=== PATIENT | male | born 1945 | race Caucasian/White ===

== ENCOUNTER 2022-02-20 08:07 | Inpatient (IN) ==
--- NOTE | 2022-01-24 11:57 | PAT Medication Instructions ---
Medication Instructions Date of Service January 24, 2022 Home Medications aspirin 81 mg tablet 81 mg PO QAM atorvastatin 20 mg tablet (Lipitor) 20 mg PO PM bimatoprost 0.03 % eye drops 1 drp ophthalmic (eye) PM doxazosin 4 mg tablet 4 mg PO HS empagliflozin 10 mg tablet (Jardiance) 10 mg PO QAM famotidine 20 mg tablet 20 mg PO BID fluorouracil 0.5 % topical cream 1 applic topical HS PRN cancer spots furosemide 20 mg tablet 20 mg PO QAM latanoprost 0.005 % eye drops 1 drp ophthalmic (eye) QAM losartan 25 mg tablet 25 mg PO QAM metformin 500 mg tablet 500 mg PO QAM nitroglycerin 0.3 mg sublingual tablet (Nitrostat) 0.3 mg sublingual UD PRN Chest Pain PreserVision AREDS-2 1 tab PO AMPM Continue as directed nitroglycerin 0.3 mg sublingual tablet (Nitrostat) 0.3 mg sublingual UD PRN Chest Pain (if needed) ASK your prescriber and surgeon aspirin 81 mg tablet 81 mg PO QAM STOP taking 2 weeks before surgery (or as soon as possible if surgery is within 2 weeks) PreserVision AREDS-2 1 tab PO AMPM STOP taking 24 hours before surgery fluorouracil 0.5 % topical cream 1 applic topical HS PRN cancer spots STOP taking 3 days before surgery empagliflozin 10 mg tablet (Jardiance) 10 mg PO QAM DO NOT take the morning of surgery furosemide 20 mg tablet 20 mg PO QAM losartan 25 mg tablet 25 mg PO QAM metformin 500 mg tablet 500 mg PO QAM Take morning of surgery With a small sip of water, OTHERWISE NOTHING TO EAT OR DRINK AFTER MIDNIGHT: famotidine 20 mg tablet 20 mg PO BID latanoprost 0.005 % eye drops 1 drp ophthalmic (eye) QAM Take evening before surgery atorvastatin 20 mg tablet (Lipitor) 20 mg PO PM bimatoprost 0.03 % eye drops 1 drp ophthalmic (eye) PM doxazosin 4 mg tablet 4 mg PO HS famotidine 20 mg tablet 20 mg PO BID Other Notes If you have any questions please call us at [phone] or [phone] or [phone] or [phone]
--- NOTE | 2022-01-29 13:35 | Anesthesiology Consultation ---
Date of Service January 29, 2022 Assessment & Plan (1) Encounter for pre-operative examination: - COVID screening: Per assessment on 01/29: No known COVID-19 positive contacts or current COVID-19 related symptoms. Travel screen negative. Patient vaccinated. Patient was Covid positive 11/11/2021 (home test) - cough, runny nose, fatigue > symptoms resolved. Pt was Covid positive greater than 90 days prior to DOS. At surgeon discretion if preop Covid testing being done. - Check BSG AM DOS - Cardiology office visit (12/27/21): "Coronary artery disease: He is not having any symptoms and he is stable. His left ventricular systolic function is normal.his LDL cholesterol is at goal. I added low-dose carvedilol to his medical regiment.. Hypertension: His goal blood pressure is less than 130/80..Left bundle-branch block: His left ventricular systolic function is mildly reduced and we will continue to monitor.. Diabetes mellitus causing vascular disease: in the past I changed his glipizide to Jardiance. He inquires if there is any way to reduce the cost of Jardiance.. Preoperative evaluation: He is scheduled for lumbar spine surgery and I see no cardiac contraindication to this." Chart Review Chart Review: Acceptable Risk for Surgery and Patient seen in Pre Admission Testing Teaching & Discussion Pre-Anesthesia Teaching/Discussion Notes: Instructed NPO after midnight before surgery,except medications with 15 cc of water. Medication instructions provided according to the PAT guidelines. History Surgery Operation Date: 02/20/22 12:45 Proposed Procedures p L3-S1 Decompression and Fusion, Spinal Cord Monitoring - Kennedy Perez DO Height/Weight Height: 6 ft Weight: 110.1 kg Allergies Allergy/AdvReac Type Severity Reaction Status Date / Time apple Allergy Severe Lip/Tongue/Throat Verified 01/29/22 09:00 swelling pineapple Allergy Severe Lip/Tongue/Throat Verified 01/29/22 09:00 swelling Medications Home Medications Medication Instructions Recorded Confirmed Last Taken aspirin 81 mg tablet 81 mg PO QAM 01/24/22 01/24/22 Unknown atorvastatin 20 mg tablet (Lipitor) 20 mg PO PM 01/24/22 01/24/22 Unknown bimatoprost 0.03 % eye drops 1 drp ophthalmic (eye) PM 01/24/22 01/24/22 Unknown doxazosin 4 mg tablet 4 mg PO HS 01/24/22 01/24/22 Unknown empagliflozin 10 mg tablet 10 mg PO QAM 01/24/22 01/24/22 Unknown (Jardiance) famotidine 20 mg tablet 20 mg PO BID 01/24/22 01/24/22 Unknown fluorouracil 0.5 % topical cream 1 applic topical HS PRN cancer 01/24/22 01/24/22 Unknown spots furosemide 20 mg tablet 20 mg PO QAM 01/24/22 01/24/22 Unknown latanoprost 0.005 % eye drops 1 drp ophthalmic (eye) QAM 01/24/22 01/24/22 Unknown losartan 25 mg tablet 25 mg PO QAM 01/24/22 01/24/22 Unknown metformin 500 mg tablet 500 mg PO QAM 01/24/22 01/24/22 Unknown nitroglycerin 0.3 mg sublingual 0.3 mg sublingual UD PRN Chest Pain 01/24/22 01/24/22 Unknown tablet (Nitrostat) vit C 250 mg-E 90 mg-zinc 40 1 tab PO AMPM 01/24/22 01/24/22 Unknown mg-copper 1 [id number] chew tablet (PreserVision AREDS-2) Past Medical History Medical History CAD (coronary artery disease) RICH to pLAD (2017) Diabetes GERD (gastroesophageal reflux disease) Controlled Glaucoma History of COVID-19 11/11/2021 (home test) - cough, runny nose, fatigue > symptoms resolved History of left bundle branch block (LBBB) Hx of skin cancer, basal cell Hyperlipidemia Hypertension Obesity Sleep apnea CPAP (compliant) Exercise / Class Metabolic Activity III < 4 Walking/Shop/Light housework (one FS (no CP, + SOB)) Past Family History Family History Other No family history of adverse response to anesthesia Past Surgical History Surgical History Hx of cardiac catheterization RICH to Tyra (2017) Hx of total knee replacement R/L Past Anesthesia History No Hx of Anesthesia Complications and No Family Hx of Anesthesia Complications History of PONV No Hx of PONV and No Hx of Motion Sickness Social History Smoking Status: Never smoker Do You Dip or Chew Tobacco: No Hx Alcohol Use: Yes Alcohol type: beer alcohol intake frequency: holidays/special occasions only Hx Substance Use: No substance use type: does not use Review of Systems Patient denies chest pain, shortness of breath, reflux, cough, wheezing, palpitations. Physical Exam Vital Signs VITALS BP 127/72 P 70 TEMP 97.5 SP02 96%RA RESP 18 PHYSICAL Full cervical extension range of motion. Full TMJ range of motion. TMD 3 finger breaths Mallampati Score 2 Dentition: upper full denture, lower partial Lungs: clear throughout to auscultation Cardiac: regular rate and rhythm, no murmurs noted Spine: normal Carotid arteries: negative bruit Extremities: no edema Lab Results Anesthesia Preop Results Results Anesthesia Widget: WBC 5.12 K/ul (4.8-10.8) 01/29/22 Hgb 14.5 g/dl (14.0-18.0) 01/29/22 Hct 42.6 % (40.1-51.0) 01/29/22 Plt 176 K/uL (130-400) 01/29/22 Na 140 mmol/L (136-145) 01/29/22 K 4.0 mmol/L (3.5-5.1) 01/29/22 Cl 105 mmol/L (98-107) 01/29/22 CO2 29 mmol/L (21-32) 01/29/22 BUN 17 mg/dl (6-23) 01/29/22 Creat 1.01 mg/dl (0.6-1.4) 01/29/22 Glucose Level 150 mg/dl (70-99(Fasting)) H 01/29/22 PT 10.7 Seconds (9.0-12.0) 01/29/22 PTT 23.2 Seconds (21.0-31.0) 01/29/22 INR 1.0 (0.9-1.1) 01/29/22 Urine Color Yellow 01/29/22 Urine Appearance Clear (Clear) 01/29/22 Urine pH 5.0 (4.5-7.5) 01/29/22 Urine Specific Dexter 1.021 (1.000-1.030) 01/29/22 Urine Protein Negative (Negative) 01/29/22 Urine Glucose (UA) 3+ (Negative) H 01/29/22 Urine Ketones Negative (Negative) 01/29/22 Urine Blood Negative (Negative) 01/29/22 Urine Nitrite Negative (Negative) 01/29/22 Urine Bilirubin Negative (Negative) 01/29/22 Urine Urobilinogen Negative (Negative) 01/29/22 Urine Leukocyte Esterase Negative (Negative) 01/29/22 Blood Type A Positive 01/29/22 Antibody Screen NEGATIVE 01/29/22 Testing Laboratory Results 01/02/22 HGBA1C 6.9% Electrocardiogram Date: 01/29/22 SB with first degree AVB at 59bpm. LAD. NS IVCD. Compared to 10/12/2004, UT interval increased, QRS duration increased, criteria for septal infarct no longer present per bulk truck driver comparison. Chest X-Ray Date: 01/29/22 FINDINGS: PA and lateral chest radiographs are obtained. No prior studies are av ailable for comparison at the time of dictation. The heart is mildly enlarged noting atherosclerotic calcification of the thoracic aorta. The pulmonary vasculature is noncongestive. Interstitial thickening is likely chronic. There is bibasilar scarring/atelectasis. The lungs and pleural spaces are clear. There is no pneumothorax. The skeletal structures are osteopenic. The bony thorax appears intact. IMPRESSION: No active disease in the chest. Echocardiogram Date: 01/16/21 LVEF 45-50%. Septal motion abnormal consistent with left bundle branch block. Left ventricular wall motion is normal. Grade 1 diastolic dysfunction. No significant valvular disease. Stress Test Date: 06/09/17 Type: nuclear Abnormal pharmacologic Cardiolite stress test demonstrating LAD territory ischemia. Indeterminate stress EKG secondary to baseline left bundle branch block. Anterior septal hypokinesis. Mildly reduced post-rest ejection fraction of 48%. Top normal TID. Subsequent cardiac cath with placement of 1 drug-eluting stent performed 06/20/2017.* Cardiac Catheterization Date: 06/20/17 Coronary arteries have significant one-vessel [id number]% stenosis in proximal/mid LAD status post successful PCI with 1 drug-eluting stent. COVID-19 Risk Screen Screening Information COVID-19 Screen Date: 01/29/22 Exposure 21 Days Family/Household +COVID Last 21 Days: No Exposure 10 Days Any COVID Exposure Last 10 Days: No Symptoms Last 10 Days Experienced COVID Sx Last 10 Days: No + COVID 0-90 Days COVID + in Last 0-90 Days: Yes + COVID Test 0-10 Day: No + COVID Test 11-90 Day: Yes
[~2022-02-20 08:07] MED LIST: ACETAMINOPHEN 500 MG TAB PO SCH; CeleBREX 200 MG CAP PO SCH; GABAPENTIN 300 MG CAP PO SCH; LR 15ML/HR IV SCH; ceFAZolin 2000MG 2,000 MG/15 ML SYR IV SCH
[2022-02-20] MEDS ORDERED: ATROPINE SULFATE 0.1 MG/ML 10ML SYR IV PRN (08:31)
[2022-02-20] MEDS ORDERED: ePHEDrine sulfate 50 MG/ML AMP IV PRN (08:31)
[2022-02-20] MEDS ORDERED: ONDANSETRON INJ 2 MG/ML 2 ML VIAL IV PRN ×2 (08:31→14:59)
--- NOTE | 2022-02-20 09:20 | History & Physical Bridge Note ---
Date of Service February 20, 2022 History & Physical Bridge Note I have examined the patient, reviewed the History & Physical and in the interval since the performance of the History & Physical I have noted the following changes of clinical significance: no changes noted
--- NOTE | 2022-02-20 09:21 | History & Physical Report ---
Date of Service February 20, 2022 Assessment & Plan (1) Neurogenic claudication due to lumbar spinal stenosis: Plan: L3-S1 decompression and fusion History of Present Illness Chief Complaint: Back and bilateral leg pain Primary Care Provider: Hunter Ruiz MD This is a 76-year-old male presents with chronic system back and leg pain after failing course of nonoperative care is here for surgical invention. Allergies Allergy/AdvReac Type Severity Reaction Status Date / Time apple Allergy Severe Lip/Tongue/Throat Verified 02/20/22 08:33 swelling pineapple Allergy Severe Lip/Tongue/Throat Verified 02/20/22 08:33 swelling Home Medications Medication Instructions Recorded Confirmed Type aspirin 81 mg tablet 81 mg PO QAM 01/24/22 02/20/22 History atorvastatin 20 mg tablet (Lipitor) 20 mg PO PM 01/24/22 02/20/22 History bimatoprost 0.03 % eye drops 1 drp ophthalmic (eye) PM 01/24/22 02/20/22 History doxazosin 4 mg tablet 4 mg PO HS 01/24/22 02/20/22 History empagliflozin 10 mg tablet 10 mg PO QAM 01/24/22 02/20/22 History (Jardiance) famotidine 20 mg tablet 20 mg PO BID 01/24/22 02/20/22 History fluorouracil 0.5 % topical cream 1 applic topical HS PRN cancer 01/24/22 02/20/22 History spots furosemide 20 mg tablet 20 mg PO QAM 01/24/22 02/20/22 History latanoprost 0.005 % eye drops 1 drp ophthalmic (eye) QAM 01/24/22 02/20/22 History losartan 25 mg tablet 25 mg PO QAM 01/24/22 02/20/22 History metformin 500 mg tablet 500 mg PO QAM 01/24/22 02/20/22 History nitroglycerin 0.3 mg sublingual 0.3 mg sublingual UD PRN Chest Pain 01/24/22 02/20/22 History tablet (Nitrostat) vit C 250 mg-E 90 mg-zinc 40 1 tab PO AMPM 01/24/22 02/20/22 History mg-copper 1 [id number] chew tablet (PreserVision AREDS-2) Past Med/Surg History Medical History CAD (coronary artery disease) RICH to pLAColby (2018) Diabetes GERD (gastroesophageal reflux disease) Controlled Glaucoma History of COVID-19 11/11/2021 (home test) - cough, runny nose, fatigue > symptoms resolved History of left bundle branch block (LBBB) Hx of skin cancer, basal cell Hyperlipidemia Hypertension Obesity Sleep apnea CPAP (compliant) Surgical History Hx of cardiac catheterization RICH to Tyra (2017) Hx of total knee replacement R/L Family History Other No family history of adverse response to anesthesia Social History Smoking Status: Never smoker Second Hand Exposure: No; Do You Dip or Chew Tobacco: No; Tobacco Cessation Education Requested by Patient: No Hx Alcohol Use: Yes Alcohol type: beer Hx Substance Use: No Preferred Language: Lao Communication Ability: Effective Damper Fitter Required: No Beliefs That Will Affect Care: None Current Living Situation: Spouse Other Information That Helps Us Care for You: No Feels Safe at Home: Yes Safety Concerns: Feels Safe At This Time Assistive Devices: CPAP, Denture - Upper, Denture - Lower, Glasses and Hearing Aid - Bilateral Physical Exam Physical Exam: Patient is alert oriented Heart regular rhythm Lungs clear Results & Data Results & Data ([facility]) Vital Signs (Past 12 Hours) Vital Signs Temp Pulse Resp BP Pulse Ox O2 Del Method 02/20/22 08:30 36.6 C 90 20 150/87 H 96 Room Air
[2022-02-20] MEDS ORDERED: ceFAZolin 330 MG/ML 1 GM VIAL ONE (09:30)
[2022-02-20] MEDS ORDERED: BUPIVACAINE/EPINEPHRINE 0.25% 1:200,000 30 ML VIAL ONE (09:30)
[2022-02-20] MEDS ORDERED: MIDAZOLAM HCL 1 MG/ML 2ML VIAL ONE (09:37)
[2022-02-20] MEDS ORDERED: PROPOFOL IV EMULSION 10 MG/ML 20 ML VIAL IV ONE (09:37)
[2022-02-20] MEDS ORDERED: fentaNYL citrate 100 MCG/2 ML VIAL ONE (09:37)
[2022-02-20] MEDS ORDERED: LIDOCAINE 2% MPF LOCAL 5 ML VIAL INFIL ONE (09:38)
[2022-02-20] MEDS ORDERED: ROCURONIUM BROMIDE 10 MG/ML 5 ML VIAL IV ONE ×7 (09:39→11:19)
[2022-02-20] MEDS ORDERED: SUCCINYLCHOLINE CHLORIDE 20 MG/ML 10 ML VIAL IV ONE (09:40)
[2022-02-20] MEDS ORDERED: HYDROmorphone INJ 2 MG/ML SYR/VIAL ONE (11:17)
[2022-02-20] MEDS ORDERED: FLOSEAL HEMOSTATIC MATRIX 10ML TOP ONE ×2 (11:40→11:56)
--- NOTE | 2022-02-20 12:26 | Operative Report ---
Post Operative Report Pre & Post Diagnosis Operation Date: 02/20/22 09:45 Pre-Op Diagnosis: Neurogenic Claudication due to Lumbar Spinal Stenosis Post-Op Diagnosis: Neurogenic Claudication due to Lumbar Spinal Stenosis I identified the patient and participated in the time-out.: Yes Procedure Operation Date: 02/20/22 09:45 Actual Procedures #1 lumbar decompression bilateral medial facetectomies and foraminotomies L2-L3, L3-L4, L4-L5 and L5-S1. #2 posterior spinal fusion L3-S1. #3 placement posterior segmental instrumentation L3-S1. #4 interbody fusion L3-L4, L4-L5 and L5-S1. #5 placement of Spira limb by 26 mm at L3-L4, 14 x 26 mm at L4-5 and 10 x 26 mm L5-S1. #6 placement locally harvested morselized autograft in the posterior gutters. #7 placement of I factor model V toss in interbody space and posterior lateral gutters. Surgeon Kennedy Perez, DO Preform Plate Maker Rosario Addison Estimated Blood Loss 500 Findings See Below The patient is 6 feet tall weighing over 108 kg with a BMI in excess of 32. The patient's body habitus did contribute significant technical difficulty requiring her deepest retractors and longer instruments in order to perform his procedure. This at least 50% increased operative time. Specimens None Indications This is a 76-year-old male who presents above-mentioned diagnosis after failed extensive course of nonoperative care is here for surgical invention. Description of Procedure Patient met with identified informed consent obtained. Patient was then taken to the operative suite underwent ablation placed in a prone position the [place] table top Jamari frame. All bony prominences well-padded eyes inspected to e nsure no external pressure placed upon them. This point the lumbar spine was prepped and draped in normal sterile fashion. Sharp dissection with the assistance of Bovie cartilage from down to and exposing the lamina and transverse processes of L3 L4-5 and sacral ala bilaterally. From a caudal to cephalad fashion complete laminectomy of L5 L4 L3 and partial laminectomy of L2 was performed including bilateral medial facetectomies and foraminotomies addressing severe spinal stenosis. Pedicle screws were then placed in L3-L4-L5 and S1 levels bilaterally with assistance of fluoroscopy and appropriately sized nba placed. By way of entrance foraminal approach and left complete discectomy of L5-S1 was performed endplates curetted to subcortical bleeding bone and a 10 x 26 mm spiral cage with I factor tapped in position. I then proceeded L4-L5 and again by way of a transfemoral approach and left complete discectomy performed endplates curetted to subcortical bleeding bone and a 14 x 26 mm spiral cage filled I factor tapped in position. Lastly proceeded to L3-L4 and again by way of a transfemoral approach and left pleat discectomy performed endplates curetted to subcortical bleeding bone and a 11 x 26 mm spiral cage with I factor tapped in position. Rods were then locked in final position bilaterally. The transverse processes of L3 L4-5 and sacral ala burred to subcortical bleeding bone. I factor model V toss and locally harvested morselized autograft placed in the posterior gutters. 15 round JOSE ALEJANDRO drain inserted. The incision was then closed with 1 Vicryl in the fascia 2-0 Vicryl subcutaneously and 4 Monocryl for final skin closure. Steri-Strips dressings placed. Patient awakened taken to PACU stable condition. Please note spinal cord monitoring was utilized at the procedure no changes noted. Lastly Rosario Addison was present at the entire surgery involved the patient positioning complex portions of the surgery and final skin closure. I attest to the content of the Intraoperative Record and any orders documented therein. Any exceptions are noted below.
[2022-02-20] MEDS ORDERED: ONDANSETRON INJ 2 MG/ML 2 ML VIAL ONE (12:27)
[2022-02-20] MEDS ORDERED: GLYCOPYRROLATE 0.2 MG/ML VIAL ONE (12:31)
--- NOTE | 2022-02-20 12:36 | Fluoroscopy Report ---
INTRAOPERATIVE RADIOGRAPHS CLINICAL HISTORY: L3-S1 spinal fusion. Fluoroscopy time: 46 seconds. FINDINGS: 3 spot fluoroscopic views of the lumbar spine are presented. There has been discectomy at L 3-L4, L4-L5, and L5-S1 with L3-S1 spinal fusion. Interpedicular screws are present at all levels. The orthopedic hardware appears intact. IMPRESSION: Intraoperative images from lumbar spinal fusion surgery as above. Electronically signed by: Mike Ruiz M.D. 02/20/2022 12:35 PM
[2022-02-20] MEDS: fentaNYL citrate 100 MCG/2 ML VIAL IV PRN ×4 (12:52→13:35)
--- NOTE | 2022-02-20 13:49 | Anesthesiology Progress Note ---
Date of Service February 20, 2022 Anesthesia Post Procedure Vital Signs Vital Signs: Temp Pulse Resp BP Pulse Ox O2 Del Method O2 Flow Rate 02/20/22 13:40 68 12 137/89 95 Nasal Cannula 2 02/20/22 13:30 71 16 140/72 96 Nasal Cannula 2 02/20/22 13:20 70 19 144/73 H 97 Nasal Cannula 2 02/20/22 13:10 68 15 128/75 94 Oxymask 4 02/20/22 13:00 69 15 130/66 96 Oxymask 4 02/20/22 12:50 68 14 137/72 97 Oxymask 4 02/20/22 12:43 36.5 C 74 20 139/85 96 Oxymask 6 02/20/22 08:30 36.6 C 90 20 150/87 H 96 Room Air Pain Intensity Right Leg: Pain Intensity: 0 Back: Pain Intensity: 5 Transfer of Care Handoff Completed per policy Notes Mental Status: alert / awake / arousable Patient Amnestic to Procedure: Yes Nausea / Vomiting: adequately controlled Pain: adequately controlled Airway Patency, RR, SpO2: stable & adequate BP & HR: stable & adequate Hydration State: stable & adequate Anesthetic Complications: no major complications apparent
[2022-02-20] MEDS ORDERED: ONDANSETRON 4 MG OD TAB PO PRN (14:59)
[2022-02-20] MEDS ORDERED: SOD PHOSPHATE/SOD BIPHOSPHATE ENEMA 132 ML BTL PR PRN (14:59)
[2022-02-20] MEDS ORDERED: NALOXONE HCL 0.4 MG/1 ML VIAL/CARP IV PRN (14:59)
[2022-02-20] MEDS ORDERED: HYDROmorphone INJ 1 MG/ML SYRINGE IV PRN (14:59)
[2022-02-20] MEDS ORDERED: PROMETHAZINE HCL 12.5 MG in SODIUM CHLORIDE 0.9% 50 ML IV PRN (14:59)
[2022-02-20] MEDS ORDERED: LORazepam 0.5 MG in SYRINGE 0 ML IV PRN (14:59)
[2022-02-20] MEDS ORDERED: FAMOTIDINE 20 MG TAB PO PRN (14:59)
[2022-02-20] MEDS ORDERED: diphenhydrAMINE Capsule 25 MG CAP PO PRN (14:59)
[2022-02-20] MEDS ORDERED: PHARMACY GLYCEMIC MGMT CONSULT PRN (14:59)
[2022-02-20] MEDS ORDERED: ACETAMINOPHEN 1,000 MG/100 ML VIAL IV PRN (14:59)
[2022-02-20] MEDS ORDERED: METOCLOPRAMIDE HCL INJ 5 MG/ML 2 ML VIAL IV PRN (14:59)
[2022-02-20] MEDS ORDERED: hydrOXYzine HCl 25 MG TAB PO PRN (14:59)
[2022-02-20] MEDS ORDERED: DO NOT ADMINISTER PNEUMOCOCCAL VACCINE PRN (14:59)
[2022-02-20] MEDS ORDERED: traMADol HCL 50 MG TABLET PO PRN (14:59)
[2022-02-20] MEDS ORDERED: DO NOT ADMINISTER FLU VACCINE PRN (14:59)
[2022-02-20] MEDS ORDERED: MAGNESIUM HYDROXIDE SUSP 30 ML UDC PO PRN (14:59)
[2022-02-20] MEDS ORDERED: LORazepam 0.5 MG TAB PO PRN (14:59)
[2022-02-20] MEDS ORDERED: bisacodyL 10 MG SUPP PR PRN (14:59)
[2022-02-20] MEDS ORDERED: ALUMINUM/MAGNESIUM SUSP 30 ML UDC PO PRN (14:59)
[2022-02-20] MEDS ORDERED: NITROGLYCERIN SL 0.4 MG/TAB TAB SL PRN (15:08)
[2022-02-20] MEDS: SODIUM CHLORIDE 0.9% 1000ML 1,000 ML IV SCH ×2 (15:16→22:06)
--- NOTE | 2022-02-20 15:24 | Pharmacy Report ---
Pharmacy Glycemic Short Note 2 - Date of Service February 20, 2022 - Glycemic Short BSG Results (Last 24 hours): 02/20/22 02/20/22 08:26 12:46 POC Glucose 125 H 156 H OUTPATIENT ANTIDIABETIC REGIMEN: * Metformin 500mg PO QAM * Jardiance 10mg PO QAM ASSESSMENT: * Patient is a 76 year old male with diabetes who is being admitted following surgery. * The patient will receive dexamethasone 6 mg IV once daily over the next three days. * No previous admissions to draw data from; Will start weight-base stress of 2 bolus dosing (Novolog CF 20 CR 7) * Will give one 20 unit dose of Lantus today in anticipation of steroid initiation, will reevaluate further dosing in morning. PLAN FOR INPATIENT GLYCEMIC CONTROL: * Hold outpatient oral diabetes medications * Basal insulin * Lantus 20 units SQ x1 * Bolus insulin * NovoLog per scale ACHS or Q6hrs while NPO * Goal Range: Low 110 mg/dL - High 140 mg/dL * Correction Factor: 20 mg/dL/unit * Nutritional / Prandial insulin per carb ratio of 1 unit per 7 grams CHO consumed
[2022-02-20] MEDS ORDERED: GLUCOSE 10 TAB/TUBE PO PRN (15:30)
[2022-02-20] MEDS ORDERED: GLUCOSE 40% GEL 15 GM TUBE PO PRN (15:30)
[2022-02-20] MEDS ORDERED: CARBOHYDRATES FOR HYPOGLYCEMIA PO PRN (15:30)
[2022-02-20] MEDS ORDERED: GLUCAGON FOR INJ 1 MG VIAL IM PRN (15:30)
[2022-02-20] MEDS ORDERED: LANTUS PER UNIT CHARGE SQ ONE (15:30)
[2022-02-20] MEDS ORDERED: DEXTROSE 50% 50 ML SYRINGE IV PRN (15:30)
--- NOTE | 2022-02-20 17:00 | Hospitalist Consultation ---
Date of Consultation February 20, 2022 Assessment & Plan (1) Neurogenic claudication due to lumbar spinal stenosis: POD#0 L3-S1 decompression and fusion by Dr. Perez Activity and wound care orders as per ortho Pain control with bowel regimen PT/OT Monitor H/H for acute blood loss anemia and transfuse blood products PRN EBL 500 cc (2) CAD (coronary artery disease): S/p RICH to proximal LAD in 2018 Appears stable, no reports of chest pain Continue ASA, statin, beta-jennifer (3) Chronic combined systolic and diastolic CHF (congestive heart failure): Echo 01/2021-mildly reduced EF 45 to 50%, grade 1 diastolic dysfunction Appears euvolemic Continue home dose furosemide Continue beta-jennifer and ARB (4) Hypertension: BP controlled, continue carvedilol, losartan (5) DM type 2 (diabetes mellitus, type 2): Hgb A1c 6.9 12/2021 Glycemic pharmacy following (6) Sleep apnea: CPAP as per home settings DVT prophylaxis TEDs/SCDs as per spine Ortho Thank you for this consultation. We will follow the patient with you during their hospital stay. You can reach a member of the [facility] Hospitalist Team 30/09 via the [place] Hospitalist role in [place] Text. Supervising Physician Co-Signing Physician Notes I have seen and examined the patient and have discussed the case with the provider above. I agree with the assessment and plan as stated. Patient reports feeling pain that is expected post-operatively. No numbness in his feet. Pain is well managed. My physical exam reflects that above. He appears euvolemic. We will continue to follow his progress daily while admitted. DO Sebas History of Present Illness Reason for Consultation: Postop medical management Requesting Physician: Dr. Perez Attending Physician: Kennedy Perez DO History of Present Illness 76-year-old male with PMH DM type II, CAD, MANPREET on CPAP, chronic LBBB, HTN, GERD, BPH, and other problems listed below who is s/p L3-S1 decompression and fusion today by Dr. Perez. Postoperatively, the patient is doing well. He reports his pain is well controlled. He has chronic, mild weakness to the RLE which was present prior to surgery. Denies any other numbness, tingling, weakness. No chest pain or shortness of breath. Denies lightheadedness and dizziness. No a bdominal pain or nausea. Prater catheter is in place draining clear yellow urine. Allergies Allergy/AdvReac Type Severity Reaction Status Date / Time apple Allergy Severe Lip/Tongue/Throat Verified 02/20/22 08:33 swelling pineapple Allergy Severe Lip/Tongue/Throat Verified 02/20/22 08:33 swelling Home Medications Medication Instructions Recorded Confirmed Type aspirin 81 mg tablet 81 mg PO QAM 01/24/22 02/20/22 History atorvastatin 20 mg tablet (Lipitor) 20 mg PO PM 01/24/22 02/20/22 History bimatoprost 0.03 % eye drops 1 drp ophthalmic (eye) PM 01/24/22 02/20/22 History empagliflozin 10 mg tablet 10 mg PO QAM 01/24/22 02/20/22 History (Jardiance) famotidine 20 mg tablet 20 mg PO BID 01/24/22 02/20/22 History fluorouracil 0.5 % topical cream 1 applic topical HS PRN cancer 01/24/22 02/20/22 History spots furosemide 20 mg tablet 20 mg PO QAM 01/24/22 02/20/22 History latanoprost 0.005 % eye drops 1 drp ophthalmic (eye) QAM 01/24/22 02/20/22 History losartan 25 mg tablet 25 mg PO QAM 01/24/22 02/20/22 History metformin 500 mg tablet 500 mg PO QAM 01/24/22 02/20/22 History nitroglycerin 0.3 mg sublingual 0.3 mg sublingual UD PRN Chest Pain 01/24/22 02/20/22 History tablet (Nitrostat) vit C 250 mg-E 90 mg-zinc 40 1 tab PO AMPM 01/24/22 02/20/22 History mg-copper 1 [id number] chew tablet (PreserVision AREDS-2) carvedilol 3.125 mg tablet 3.125 mg PO BID 02/20/22 02/20/22 History Patient History Medical History CAD (coronary artery disease) RICH to pLAD (2018) Chronic combined systolic and diastolic CHF (congestive heart failure) Diabetes GERD (gastroesophageal reflux disease) Controlled Glaucoma History of COVID-19 11/11/2021 (home test) - cough, runny nose, fatigue > symptoms resolved History of left bundle branch block (LBBB) Hx of skin cancer, basal cell Hyperlipidemia Hypertension Obesity Sleep apnea CPAP (compliant) Surgical History Hx of cardiac catheterization RICH to pLAD (2018) Hx of total knee replacement R/L Family History Mother Heart disorder Other No family history of adverse response to anesthesia Social History Smoking Status: Never smoker Second Hand Exposure: No; Do You Dip or Chew Tobacco: No; Tobacco Cessation Education Requested by Patient: No Hx Alcohol Use: Yes Alcohol type: beer Hx Substance Use: No Preferred Language: Serbian Communication Ability: Effective Caretaker Resort Required: No Beliefs That Will Affect Care: None Current Living Situation: Spouse Other Information That Helps Us Care for You: No Feels Safe at Home: Yes Safety Concerns: Feels Safe At This Time Assistive Devices: CPAP, Denture - Upper, Denture - Lower, Glasses and Hearing Aid - Bilateral Review of Systems Review of Systems: ROS per HPI, all other systems reviewed and negative Physical Exam Constitutional: WD/WN, vitals as above Eyes: PERRL, conjunctivae normal, anicteric sclerae ENMT: external ear and nose normal, oropharynx normal Respiratory: normal respiratory effort, lungs clear to auscultation Cardiovascular: Rate/Rhythm: regular rate and regular rhythm Vessels: normal peripheral pulses Extremities: no edema Gastrointestinal (Abdomen): normal bowel sounds, soft, nontender, no hepatosplenomegaly Musculoskeletal: no cyanosis or clubbing, extremities motor strength 5/5 S/p back surgery, pedal pushes strong bilaterally, pedal pulls slightly weaker on right -present prior to surgery per patient, drain in place draining bloody drainage Skin: no rashes, warm and dry Neurologic: PERRL, EOMI, accommodation nl, no face palsy, no dysarthria Psychiatric: A+Ox3, euthymic affect Results & Data Results & Data ([facility]) Vital Signs (Past 12 Hours) Vital Signs Temp Pulse Resp BP Pulse Ox O2 Del Method O2 Flow Rate 02/20/22 15:56 36.8 C 76 18 123/76 96 Nasal Cannula 2 02/20/22 15:30 36.4 C L 77 16 134/79 96 Nasal Cannula 2 02/20/22 14:45 79 17 141/82 H 95 Nasal Cannula 2 02/20/22 14:30 80 15 142/86 H 96 Nasal Cannula 2 02/20/22 14:15 72 20 141/72 H 93 Nasal Cannula 2 02/20/22 14:00 71 12 142/70 H 95 Nasal Cannula 2 02/20/22 13:40 68 12 137/89 95 Nasal Cannula 2 02/20/22 13:30 71 16 140/72 96 Nasal Cannula 2 02/20/22 13:20 70 19 144/73 H 97 Nasal Cannula 2 02/20/22 13:10 68 15 128/75 94 Oxymask 4 02/20/22 13:00 69 15 130/66 96 Oxymask 4 02/20/22 12:50 68 14 137/72 97 Oxymask 4 02/20/22 13:50 36.8 C 74 12 142/82 H 94 Nasal Cannula 2 02/20/22 12:43 36.5 C 74 20 139/85 96 Oxymask 6 02/20/22 08:30 36.6 C 90 20 150/87 H 96 Room Air Diagnostic Findings Lumbar Spine X-Ray 02/20/22 00:00 INTRAOPERATIVE RADIOGRAPHS CLINICAL HISTORY: L3-S1 spinal fusion. Fluoroscopy time: 46 seconds. FINDINGS: 3 spot fluoroscopic views of the lumbar spine are presented. There has been discectomy at L3-L4, L4-L5, and L5-S1 with L3-S1 spinal fusion. Interpedicular screws are present at all levels. The orthopedic hardware appears intact. IMPRESSION: Intraoperative images from lumbar spinal fusion surgery as above. Electronically signed by: Mike Ruiz M.D. 02/20/2022 12:35 PM
[2022-02-20] MEDS: INSULIN ASPART PER UNIT SC SCH ×2 (17:17→21:18)
[2022-02-20] MEDS: ceFAZolin 2000MG 2,000 MG/15 ML SYR IV SCH (17:21)
[2022-02-20] MEDS: HYDROmorphone INJ 0.5 MG/0.5 ML SYR IV PRN (18:43)
[2022-02-20] MEDS ORDERED: DOXAZosin MESYLATE 4 MG TAB PO SCH (21:00)
[2022-02-20] MEDS: ATORVASTATIN 20 MG TAB PO SCH (21:08)
[2022-02-20] MEDS: FAMOTIDINE 20 MG TAB PO SCH (21:08)
[2022-02-20] MEDS: carvediloL 3.125 MG TAB PO SCH (21:08)
[2022-02-20] MEDS: DOCUSATE SODIUM/SENNA 50/8.6MG TAB PO SCH (21:08)
[2022-02-21] MEDS: HYDROmorphone INJ 0.5 MG/0.5 ML SYR IV PRN (02:25)
[2022-02-21] MEDS: ceFAZolin 2000MG 2,000 MG/15 ML SYR IV SCH (02:58)
[2022-02-21] MEDS: ACETAMINOPHEN 500 MG TAB PO PRN ×2 (03:41→16:23)
[2022-02-21] MEDS: SODIUM CHLORIDE 0.9% 1000ML 1,000 ML IV SCH (05:12)
[2022-02-21] MEDS: POLYETHYLENE (MIRALAX) 17 GM PACK PO SCH ×3 (05:58→17:49)
[2022-02-21 06:32] LABS: Basophils # (auto) 0.01 K/uL (0-0.2); Basophils % (auto) 0.2 %; Eosinophils # (auto) 0.04 K/uL (0-0.50); Eosinophils % (auto) 0.6 %; Hematocrit (blood only) 33.3 % (40.1-51.0); Hemoglobin 11.3 g/dl (14.0-18.0); Immature Granulocytes # (auto) 0.03 K/uL (0.00-0.02); Immature Granulocytes % (auto) 0.5 %; Lymphocytes # (auto) 1.14 K/uL (1.2-3.4); Lymphocytes % (auto) 18.5 %; Mean Corpuscular Hemoglobin 30.1 pg (25.0-34.0); Mean Corpuscular Hgb Conc 33.9 g/dL (32.0-36.0); Mean Corpuscular Volume 88.6 fL (80.0-100.0); Mean Platelet Volume 9.2 fL (9.4-12.4); Monocytes # (auto) 0.56 K/uL (0.24-0.82); Monocytes % (auto) 9.1 %; Neutrophils # (auto) 4.38 K/uL (1.4-6.5); Neutrophils % (auto) 71.1 %; Platelet Count 137 K/uL (130-400); RDW Coefficient of Variation 13.2 % (11.5-14.5); RDW Standard Deviation 43.2 fL (36.4-46.3); Red Blood Count 3.76 M/uL (4.63-6.08); White Blood Count 6.16 K/ul (4.8-10.8)
[2022-02-21 07:12] LABS: BUN Creatinine Ratio 22.2 (10-20); Calcium 7.8 mg/dl (8.5-10.1); Creatinine Clr Calc Pharmacy 80.8 ml/min; Est GFR (African American) 85.4 ml/min; Est GFR (Non-African American) 73.7 ml/min
[2022-02-21 07:21] LABS: Estimated Average Glucose 134 mg/dl; Hemoglobin A1C 6.3 % (4.5-5.6)
[2022-02-21] MEDS: INSULIN ASPART PER UNIT SC SCH ×4 (08:50→21:38)
[2022-02-21] MEDS: LANTUS PER UNIT CHARGE SQ SCH (08:50)
[2022-02-21] MEDS ORDERED: LANTUS PER UNIT CHARGE SQ SCH ×2 (09:00→21:00)
[2022-02-21] MEDS ORDERED: EMPAGLIFLOZIN 10 MG TAB PO SCH (09:00)
[2022-02-21] MEDS: oxyCODONE HCL IR 5 MG TAB (IMMEDIATE RELEASE) PO PRN (09:14)
[2022-02-21] MEDS: LOSARTAN POTASSIUM 25 MG TAB PO SCH (09:15)
[2022-02-21] MEDS: FAMOTIDINE 20 MG TAB PO SCH ×2 (09:15→21:40)
[2022-02-21] MEDS: FUROSEMIDE 20 MG TAB PO SCH (09:15)
[2022-02-21] MEDS: carvediloL 3.125 MG TAB PO SCH ×2 (09:15→21:40)
[2022-02-21] MEDS: ASPIRIN 81 MG ECTAB PO SCH (09:15)
[2022-02-21] MEDS: dexAMETHasone 6 MG in SYRINGE 0 ML IV SCH (09:16)
[2022-02-21] MEDS: LATANOPROST 0.005% OP SOLN 2.5 ML BTL OP SCH (09:16)
--- NOTE | 2022-02-21 09:50 | Pharmacy Report ---
Pharmacy Glycemic Short Note 2 - Date of Service February 21, 2022 - Glycemic Short BSG Results (Last 24 hours): 02/20/22 02/20/22 02/20/22 12:46 17:03 20:32 Glucose POC Glucose 156 H 132 H 125 H 02/21/22 02/21/22 06:03 08:12 Glucose 143 H POC Glucose 132 H OUTPATIENT ANTIDIABETIC REGIMEN: * Metformin 500mg PO QAM * Jardiance 10mg PO QAM ASSESSMENT: 02/21: * BSGs [phone]/dL the last 24h, well controlled. Pt received 20 units of basal and 8 units of bolus insulin yesterday. * Dexamethasone 6mg IV daily starting today and tolerating diet. * Plan for BID basal insulin starting today, 15 units this AM with an HS scale pending BSG. Continue current Novolog parameters (moderate stress) and tighten as needed pending BSG trend. 02/20 * Patient is a 76 year old male with diabetes who is being admitted following surgery. * The patient will receive dexamethasone 6 mg IV once daily over the next three days. * No previous admissions to draw data from; Will start weight-base stress of 2 bolus dosing (Novolog CF 20 CR 7) * Will give one 20 unit dose of Lantus today in anticipation of steroid initiation, will reevaluate further dosing in morning. PLAN FOR INPATIENT GLYCEMIC CONTROL: * Hold outpatient oral diabetes medications * Basal insulin * Lantus 15 units SQ qAM + HS scale * Bolus insulin * NovoLog per scale ACHS or Q6hrs while NPO * Goal Range: Low 110 mg/dL - High 140 mg/dL * Correction Factor: 20 mg/dL/unit * Nutritional / Prandial insulin per carb ratio of 1 unit per 7 grams CHO consumed
--- NOTE | 2022-02-21 10:53 | Orthopedic Progress Note ---
Date of Service February 21, 2022 Assessment & Plan (1) Neurogenic claudication due to lumbar spinal stenosis: Plan: At this time continue physical therapy monitor JOSE ALEJANDRO operatively discharge home in next few days. Admission and Anticipated Discharge Date Admission Date: February 20, 2022 Subjective Back pain controlled leg pain improved Physical Exam Physical Exam: Patient is in the chair at the bedside today. He is good strength testing. Results & Data ([facility]) Vital Signs (Past 12 Hours) Vital Signs Temp Pulse Pulse Resp BP Pulse Ox O2 Del Method 02/21/22 08:00 Room Air 02/21/22 09:12 82 150/74 H 02/21/22 07:00 37.3 C 69 16 125/66 94 Room Air 02/21/22 02:45 36.5 C 76 16 115/63 92 CPAP 02/21/22 02:40 12 95 02/20/22 22:53 80 15 94 FiO2 02/21/22 08:00 02/21/22 09:12 02/21/22 07:00 02/21/22 02:45 02/21/22 02:40 21 02/20/22 22:53 21
--- NOTE | 2022-02-21 15:30 | Hospitalist Progress Note ---
Date of Service February 21, 2022 Assessment & Plan (1) Neurogenic claudication due to lumbar spinal stenosis: Plan: POD#1 L3-S1 decompression and fusion performed by Dr. Perez No post op complication Continue Pain control Continue PT/OT eval Hgb 11.3 today Fall precaution Continue monitor (2) CAD (coronary artery disease): Plan: S/p RICH to proximal LAD in 2018 denies any chest pain Continue ASA, statin, beta-jennifer (3) Chronic combined systolic and diastolic CHF (congestive heart failure): Plan: Echo 01/2021-mildly reduced EF 45 to 50%, grade 1 diastolic dysfunction Appears euvolemic Continue home dose furosemide Continue beta-jennifer and ARB (4) Hypertension: Plan: BP controlled, continue carvedilol, losartan (5) DM type 2 (diabetes mellitus, type 2): Plan: Hgb A1c 6.9 on 12/2021 Pharmacy on board for glycemic management Continue monitor BS (6) Sleep apnea: Plan: CPAP as per home settings DVT prophylaxis TEDs/SCDs as per spine Ortho Thank you for this consultation. We will follow the patient with you during their hospital stay. You can reach a member of the [facility] Hospitalist Team 30/09 via the [facility] Hospitalist role in [place] Text. Admission and Anticipated Discharge Date Admission Date: February 20, 2022 Subjective Pt was seen and examined for postop follow up Sitting in chair with no acute distress Pt said that pain is tolerated he was able to participate in therapy today Denies any chest pain, palpitation, dizziness and SOB Review of Systems Review of Systems: All systems reviewed & are unremarkable except as noted in Subjective Physical Exam Physical Exam: General- No acute distress Head- atraumatic Eyes- PERRL, EOMI, ENT- oropharynx clear Neck- supple, no JVD Lungs- clear to auscultation Heart- regular rhythm; no murmur Abdomen- normal bowel sounds, soft, nontender Extremities- no calf tenderness Neuro- alert, oriented x 3; PERRL, EOMI; no facial palsy; no dysarthria Skin- warm & dry Results & Data Results & Data ([facility]) Vital Signs (Past 12 Hours) Vital Signs Temp Pulse Resp BP Pulse Ox O2 Del Method 02/21/22 11:37 36.8 C 80 16 138/72 94 Room Air 02/21/22 08:00 Room Air 02/21/22 09:12 82 150/74 H 02/21/22 07:00 37.3 C 69 16 125/66 94 Room Air
[2022-02-21] MEDS: DOCUSATE SODIUM/SENNA 50/8.6MG TAB PO SCH (21:39)
[2022-02-21] MEDS: DOXAZosin MESYLATE 4 MG TAB PO SCH (21:39)
[2022-02-21] MEDS: ATORVASTATIN 20 MG TAB PO SCH (21:40)
[2022-02-22] MEDS: POLYETHYLENE (MIRALAX) 17 GM PACK PO SCH ×3 (00:13→13:21)
[2022-02-22] MEDS: oxyCODONE HCL IR 5 MG TAB (IMMEDIATE RELEASE) PO PRN ×3 (02:20→13:19)
[2022-02-22] MEDS: carvediloL 3.125 MG TAB PO SCH (08:58)
[2022-02-22] MEDS: LATANOPROST 0.005% OP SOLN 2.5 ML BTL OP SCH (08:58)
[2022-02-22] MEDS: FUROSEMIDE 20 MG TAB PO SCH (08:59)
[2022-02-22] MEDS: FAMOTIDINE 20 MG TAB PO SCH (08:59)
[2022-02-22] MEDS: ASPIRIN 81 MG ECTAB PO SCH (08:59)
[2022-02-22] MEDS: DOXAZosin MESYLATE 4 MG TAB PO SCH (08:59)
[2022-02-22] MEDS: dexAMETHasone 6 MG in SYRINGE 0 ML IV SCH (08:59)
[2022-02-22] MEDS: LOSARTAN POTASSIUM 25 MG TAB PO SCH (08:59)
[2022-02-22] MEDS: INSULIN ASPART PER UNIT SC SCH ×2 (09:00→13:21)
[2022-02-22] MEDS: LANTUS PER UNIT CHARGE SQ SCH (09:01)
--- NOTE | 2022-02-22 12:29 | Discharge Summary ---
Date of Service February 22, 2022 Principal Diagnosis Lumbar spinal stenosis with neurogenic medication Discharge Data Allergies Allergy/AdvReac Type Severity Reaction Status Date / Time apple Allergy Severe Lip/Tongue/Throat Verified 02/20/22 08:33 swelling pineapple Allergy Severe Lip/Tongue/Throat Verified 02/20/22 08:33 swelling Consultations 02/20/22 14:59 Consult Hospitalist Routine Procedures Performed Operation Date: 02/20/22 09:45 Actual Procedures p L3-S1 Decompression and Fusion, Spinal Cord Monitoring(Not Applicable) - Kennedy Perez DO Ordered Studies 02/20/22 [place] lumbar spine 2-3V Routine Hospital Course (1) Neurogenic claudication due to lumbar spinal stenosis: Patient on limiting patient feeling tolerates well was taken to orthopedic for postoperative. Postop day 1 is up and ambulating progress postop day #2. JOSE ALEJANDRO drain decreasing probably. Pain well controlled. Excellent strength testing. Subsequent discharge home. Discharge orders instructions from the chart for further view. Total Time Total Time Spent Total Time Spent (In Minutes): 20 minutes Discharge Plan Discharge Items Patient Disposition: Home - Self-Care Reason For Visit: Spinal Stenosis, Lumbar Region with Neurogenic Cla Discharge Diagnosis: Lumbar spinal stenosis with neurogenic claudication Activity: As commented below Non-emergency contact: Primary Care Provider Call non-emergency contact if: you have any medication questions Follow-up/Referrals: Hunter Ruiz MD [Primary Care Provider] - Diet: Regular Addtl Attending Provider Instructions: ACTIVITY RECOMMENDATIONS: SELF CARE INSTRUCTIONS AFTER THORACIC/LUMBAR FUSIONS 1. You may walk to your tolerance. It is good exercise for your legs and back. Expect some back and intermittent leg aches and pains. 2. You may perform "counter-top" level activities (make a sandwich, sandra with a project, etc.). 3. No bending or lifting of more than 10 pounds or back twisting of any nature (roll like a log when turning in bed). 4. You may ride in a car for 20-30 minutes at a time. No driving until after your first visit with your doctor. 5. Frequent changes of position and restricting sitting to 30 minutes at a time will help limit the amount of back spasms and stiffness you may experience. 6. You may discontinue the use of ambulatory aids (cane, crutches, etc.) once your strength and confidence allow. 7. You may project intern the shower and let water strike your incision when you arrive home at least once daily. Do not take a tub bath, sit in a hot tub or go into a swimming pool until after your first recheck in the office. SPECIAL CARE INSTRUCTIONS: VERY IMPORTANT TO READ AND REVIEW A. Your surgical incision has been closed with a cosmetic suture under the skin that will dissolve in about 6 weeks. In 14 days, you can use a pair of clean scissors and cut the suture that is left outside of the skin at the ends of your incision. 1. The small skin tapes can be removed 7 days after surgery if they have not fallen off by that point. 2. You may keep the wound open to air as much as possible to promote healing after post-op day number 5 unless told otherwise by your doctor. 3. If you think the wound looks like it is becoming infected (redness or worsening drainage) and/or you are experiencing fever, chill or worsening back pain and muscle spasms, contact the office so that we may evaluate you as soon as possible. B. Complications are uncommon, but please contact us if you have any signs or symptoms of: 1. wound infection (fever higher than 102.5 degrees F, redness, separation of wound, drainage, or increasing pain from the incision) 2. blood clots in legs (pain, swelling, redness and warmth in legs) 3. urinary tract infection (fever higher than 102.5 degrees F, burning upon urination or increased frequency of urination) 4. nerve problems (inability to walk on your toes or heels, numbness, loss of bowel or bladder control) 5. any other symptoms that concern you C. Please call the office at if you have any concerns or questions about your operation or recovery. D. No smoking! Smoking drastically decreases the chance of a solid fusion. E. Do not take any anti-inflammatory medications (Indocin, Advil, Motrin, Aspirin, Naprosyn, etc.) as these may inhibit the chance of a solid fusion. Tylenol is okay to take for pain. MANAGING PAIN AFTER SPINAL SURGERY 1. Narcotic medication is intended for short-term use and will be provided for surgical pain. Surgical pain usually lasts for a period of 4-6 weeks. Narcotic medication includes Percocet, Vicodin, Darvocet, Tylenol #3 or Lortab. 2. Longer-term pain is more appropriately treated with non-narcotic medication such as Tylenol ES. 3. Muscle spasm is not appropriately treated with narcotics. Muscle relaxers such as Soma, Flexeril or Skelaxin can be used along with Tylenol ES. 4. Remember that we all live with some "aches and pains". This is not unusual or uncommon after an injury or as we get older. a. Back pain is expected and may include muscle spasms for 4 to 6 weeks after surgery. The pain should gradually improve. If the pain worsens for no apparent reason, please contact the office. b. Intermittent leg pain may also be experienced and should not be concerned about unless it worsens for no apparent reason. If so, please contact the office. 5. We will provide appropriate medication within the normal guidelines of their prescribed use. We will also be very cautious and aware of potential abuse and extended duration of patients' medication needs. a. Pain medications are for your comfort and to assist with sleep and rest so that the tissue can heal. They are not provided in order to return to normal activity and should not be used through the day. To do so or worsening pain at night can result from ongoing tissue damage and development of tolerance to the prescribed medicine. 6. Please allow 2-3 days to process refills. Prescriptions will not be mailed but must be picked up at the office. FOLLOW UP VISIT: Keep your scheduled follow-up appointment. Any questions, please call the office at . Pending Studies at Discharge: No Stand-Alone Forms: My [facility] [employer], Smoking Cessation Medications and DC Order Prescriptions: New oxycodone 5 mg tablet 5 mg PO Q6H PRN (Reason: pain, severe) Qty: 30 0RF tramadol 50 mg tablet 50 mg PO Q6H PRN (Reason: pain, moderate) Qty: 30 0RF Continued metformin 500 mg Tablet 500 mg PO QAM atorvastatin [Lipitor] 20 mg Tablet 20 mg PO PM nitroglycerin [Nitrostat] 0.3 mg Tablet, Sublingual 0.3 mg sublingual UD PRN (Reason: Chest Pain) famotidine 20 mg Tablet 20 mg PO BID losartan 25 mg Tablet 25 mg PO QAM aspirin 81 mg Tablet 81 mg PO QAM fluorouracil 0.5 % Cream 1 applic TOPICAL HS PRN (Reason: cancer spots ) furosemide 20 mg Tablet 20 mg PO QAM Jardiance 10 mg Tablet 10 mg PO QAM PreserVision AREDS-2 250-90-40-1 mg Tablet,Chewable 1 tab PO AMPM latanoprost 0.005 % Drops 1 drp OPHTHALMIC (EYE) QAM bimatoprost 0.03 % Drops 1 drp OPHTHALMIC (EYE) PM carvedilol 3.125 mg tablet 3.125 mg PO BID doxazosin 4 mg tablet 4 mg PO BID Rx Instructions: as per px home dose Discharge Orders: Discharge Order (Routine); Ordered 02/22/22 Ordered By: Kennedy Garza/Other Patient Handouts: Managing Type 2 Diabetes Admission Data Admit Date/Time: 02/20/22 12:31 Attending Provider: Kennedy Perez Admit Provider: Kennedy Perez Primary Care Provider: Hunter Ruiz I. Other Providers: Carolynn Mullen ; Alejandra Summers
--- NOTE | 2022-02-22 14:16 | Hospitalist Progress Note ---
Date of Service February 22, 2022 Assessment & Plan (1) Neurogenic claudication due to lumbar spinal stenosis: Plan: POD#1 L3-S1 decompression and fusion performed by Dr. Perez No post op complication Continue Pain control Continue PT/OT eval Hgb 11.3 today Fall precaution Continue monitor (2) CAD (coronary artery disease): Plan: S/p RICH to proximal LAD in 2018 denies any chest pain Continue ASA, statin, beta-jennifer (3) Chronic combined systolic and diastolic CHF (congestive heart failure): Plan: Echo 01/2021-mildly reduced EF 45 to 50%, grade 1 diastolic dysfunction Appears euvolemic Continue home dose furosemide Continue beta-jennifer and ARB (4) Hypertension: Plan: BP controlled, continue carvedilol, losartan (5) DM type 2 (diabetes mellitus, type 2): Plan: Hgb A1c 6.9 on 12/2021 Pharmacy on board for glycemic management Continue monitor BS (6) Sleep apnea: Plan: CPAP as per home settings DVT prophylaxis TEDs/SCDs as per spine Ortho Thank you for this consultation. We will follow the patient with you during their hospital stay. You can reach a member of the [facility] Hospitalist Team 30/09 via the [facility] Hospitalist role in [place] Text. Admission and Anticipated Discharge Date Admission Date: February 20, 2022 Subjective Pt was seen and examined for postop follow up Sitting in chair with no acute distress with at bedside Pt said that he feels ok Denies any chest pain, palpitation, dizziness and SOB Review of Systems Review of Systems: All systems reviewed & are unremarkable except as noted in Subjective Physical Exam Physical Exam: General- No acute distress Head- atraumatic Eyes- PERRL, EOMI, ENT- oropharynx clear Neck- supple, no JVD Lungs- clear to auscultation Heart- regular rhythm; no murmur Abdomen- normal bowel sounds, soft, nontender Extremities- no calf tenderness Neuro- alert, oriented x 3; PERRL, EOMI; no facial palsy; no dysarthria Skin- warm & dry Results & Data Results & Data ([facility]) Vital Signs (Past 12 Hours) Vital Signs Temp Pulse Pulse Pulse Resp BP Pulse Ox 02/22/22 08:00 02/22/22 12:23 36.5 C 79 18 118/68 98 02/22/22 07:15 36.5 C 76 18 119/75 97 02/22/22 02:37 80 14 93 O2 Del Method 02/22/22 08:00 Room Air 02/22/22 12:23 02/22/22 07:15 Room Air 02/22/22 02:37
== END 2022-02-22 16:03 | disposition home or self-care (01) | DRG 454 ==
LOC: ASU 08:07 → 3E 12:31
DX: Z96.653 Presence of artificial knee joint, bilateral; Z79.84 Long term (current) use of oral hypoglycemic drugs; I11.0 Hypertensive heart disease with heart failure; I50.42 Chronic combined systolic (congestive) and diastolic (congestive) heart failure; M48.062 Spinal stenosis, lumbar region with neurogenic claudication; E66.9 Obesity, unspecified; E11.9 Type 2 diabetes mellitus without complications; Z79.82 Long term (current) use of aspirin; Z86.16 Personal history of COVID-19; G47.30 Sleep apnea, unspecified; Z68.32 Body mass index [BMI] 32.0-32.9, adult; I25.10 Atherosclerotic heart disease of native coronary artery without angina pectoris